=== PATIENT | female | born 2000 | race African-American/Black ===

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

== ENCOUNTER 2022-06-14 20:53 | Emergency (ER) | payer MEDICAID, OTHER ==
[~2022-06-14] VITALS: Ht 167.6 cm; Wt 48.0 kg
[2022-06-14 22:01] VITALS: BP 115/67
[2022-06-14 22:38] LABS: BASOPHILS % 0.7 % (0.0-2.0); EOSINOPHILS % 1.1 % (0.0-5.0); HEMATOCRIT. 52.7 % (36.0-48.0); HEMOGLOBIN. 17.5 g/dL (12.0-16.0); MEAN CORPUSCULAR HEMOGLOBIN 31.1 pg (28.0-32.0); MEAN CORPUSCULAR VOLUME 93.8 fL (81.0-99.0); MEAN PLATELET VOLUME 10.1 fl (7.4-10.4); MONOCYTES % 7.5 % (2.0-8.0); NEUTROPHILS % 58.7 % (40.0-76.0); PLATELET 180 x1000/uL (130-400); RED BLOOD CELL COUNT 5.63 mill/uL (4.2-5.4); RED CELL DISTRIBUTION WIDTH 14.7 % (11.6-14.6)
[2022-06-14 22:44] LABS: CHLORIDE 108 mEq/L (98-107)
[2022-06-14 23:23] LABS: CLARITY URINE CLEAR (CLEAR); COLOR URINE YELLOW (YELLOW); KETONES URINE NEGATIVE (NEGATIVE); LEUKOCYTE ESTERASE URINE NEGATIVE (NEGATIVE); NITRITE URINE NEGATIVE (NEGATIVE); OCCULT BLOOD URINE NEGATIVE (NEGATIVE); PH URINE 7.5 (4.5-8.0); PROTEIN URINE NEGATIVE (NEGATIVE); SPECIFIC GRAVITY URINE 1.008 (1.005-1.030)
== END 2022-06-15 00:41 | disposition home or self-care (01) ==
LOC: ER 20:53
DX: R04.0 Epistaxis (principal); R09.02 Hypoxemia; R62.50 Unspecified lack of expected normal physiological development in childhood
CPT/HCPCS: 36415; 80053; 81003; 83880; 84484; 85025; 93005; 99284